=== PATIENT | male | born 1995 | race Caucasian/White ===

== ENCOUNTER 2017-10-12 13:15 | Emergency (ER) | payer SELFPAY ==
[~2017-10-12] VITALS: Ht 175.3 cm; Wt 77.3 kg
[2017-10-12 13:26] VITALS: BP 140/84; TEMP 98.2
[2017-10-12] MEDS ORDERED: MEDROL 4MG DOSPA4 MG PO (15:28)
[2017-10-12] MEDS ORDERED: PROAIR HFA0.09 MG/AC IH (15:28)
[2017-10-12 15:45] VITALS: PULSE 101
== END 2017-10-12 15:43 | disposition home or self-care (01) ==
LOC: COL.ER 13:15
DX: R05 Cough (principal)